=== PATIENT | female | born 1970 ===

== ENCOUNTER 2017-12-26 11:50 | Emergency (ER) | payer OTHER ==
[2017-12-26 12:24] VITALS: BMI 30.2
[2017-12-26 12:39] VITALS: BP 118/84; PULSE 131; RESP 20; TEMP 99.7; O2SAT 100
[2017-12-26] MEDS ORDERED: Naproxen 550 mg Tab PO STA (13:24)
[2017-12-26] MEDS ORDERED: Naproxen 550 mg Tab PO ONE (13:30)
--- NOTE | 2017-12-26 13:30 | C.PDOC ---
Time Seen by Provider: 12/26/17 13:04 Chief Complaint (Nursing): Flu-like Symptoms History Per: Patient Onset/Duration Of Symptoms: Days (1) Current Symptoms Are (Timing): Still Present Sick Contacts (Context): Family Member(s) Associated Symptoms: Fever, Chills, Cough, Myalgias, Nasal Congestion, Nausea Severity: Moderate Recent travel outside of the [place]: No Additional History Per: Prior Records Past Medical History Reviewed: Historical Data, Nursing Documentation, Vital Signs Vital Signs: Last Vital Signs Temp 99.7 F H 12/26/17 12:24 Pulse 131 H 12/26/17 12:24 Resp 20 12/26/17 12:24 BP 118/84 12/26/17 12:24 Pulse Ox 100 12/26/17 13:30 - Medical History PMH: No Chronic Diseases Family History: States: Unknown Family Hx - Social History Hx Tobacco Use: No Hx Alcohol Use: No Hx Substance Use: No - Immunization History Hx Tetanus Toxoid Vaccination: No Hx Influenza Vaccination: No Hx Pneumococcal Vaccination: No Review Of Systems Except As Marked, All Systems Reviewed And Found Negative. Constitutional: Positive for: Fever, Chills, Malaise Respiratory: Positive for: Cough. Negative for: Hemoptysis Gastrointestinal: Negative for: Vomiting, Abdominal Pain, Diarrhea Genitourinary: Negative for: Dysuria Skin: Negative for: Rash Neurological: Negative for: Weakness, Numbness, Seizures, Altered Mental Status Physical Exam - Physical Exam Appears: No Acute Distress Skin: Normal Color, Warm, Dry, No Rash Head: Atraumatic, Normacephalic Eye(s): bilateral: Normal Inspection, PERRL, EOMI Ear(s): Bilateral: Normal Oral Mucosa: Moist Neck: Normal ROM, Supple Cardiovascular: Rhythm Regular Respiratory: Normal Breath Sounds, No Accessory Muscle Use Gastrointestinal/Abdominal: Soft, No Tenderness Back: No CVA Tenderness Extremity: Normal ROM Neurological/Psych: Oriented x3, Normal Speech, Normal Motor, Normal Sensation ED Course And Treatment - Laboratory Results Interpretation Of Abnormal: Pt's son (also a pt currently in the ED is Flu A positive) O2 Sat by Pulse Oximetry: 100 Pulse Ox Interpretation: Normal Reassessment Condition: Improved Disposition Counseled Patient/Family Regarding: Diagnosis, Need For Followup, Rx Given - Disposition Disposition: HOME/ ROUTINE Disposition Time: 14:04 Condition: STABLE Additional Instructions: Drink plenty of fluids. Follow up with your doctor. Return to the ER if you develop shortness of breath, worsening of symptoms or if you have any other concerns. Prescriptions: Guaifenesin/Dextromethorphan [Mucinex Dm ER 1,200-60 mg Tab] 1 tab PO BID PRN # 14 tab.er.12h PRN Reason: Cough And Congestion Naproxen [Naprosyn] 1 tab PO BID PRN #20 tab PRN Reason: Fever >100.4 F Oseltamivir [Tamiflu] 75 mg PO BID #10 cap Instructions: Flu, Adult (DC) Forms: [facility] [facility] (Chinese) - Clinical Impression Clinical Impression: Influenza
== END 2017-12-26 14:37 | disposition home or self-care (01) ==
LOC: C.ER 11:50
DX: J11.1 Influenza due to unidentified influenza virus with other respiratory manifestations (principal)